=== PATIENT | female | born 1945 | race Caucasian/White ===

== ENCOUNTER 2019-02-05 17:27 | Observation (INO) ==
--- NOTE | 2019-02-05 18:08 | Emergency Department Note ---
Disposition Clinical Impression: Hyperkalemia, Renal insufficiency Disposition: Admitted As Inpatient Condition: Good Time of Disposition: 19:30 Recheck wound or abnormal lab - General Chief Complaint: ED Recheck/Abnormal Lab/Rx Stated Complaint: abnormal labs Time Seen by Provider: 02/05/19 18:07 Source: patient, other Mode of arrival: private vehicle Limitations: no limitations Nursing Notes Reviewed: Yes Vital Signs Reviewed: Yes - History of Present Illness HPI Narrative: Patient presents to the ED on referral from the lab any surgical center after having abnormal labs during preop testing. Chrystal from the surgical center called ahead to stated. Seen the patient today for preop testing in preparation for a left total knee replacement this test be performed on February 13. Patient was found to have an elevated potassium at 6.5 and a creatinine of 2.58. She is on oral potassium and Aldactone at home. Patient had no history of chronic kidney disease. They contacted her and told her to come to her nearest ER which is our facility. She states there was also some abnormal findings on her EKG and there physician wanted to arrange for the patient have an outpatient stress test before surgery. She has no cardiac history and denied any complaints. On arrival here patient denies any complaints other than her chronic left knee pain. She again denies any history of any kidney disease. She is not had any water to drink today, only a June". She speci fically denies any chest pain, shortness of breath, lower extremity edema, abdominal pain, nausea, vomiting, diarrhea, constipation or any urinary symptoms. She did have a TIA last February. She has a history of high blood pressure. She states she has been on potassium, 10 mEq twice a day for the past year. Prior to that she had been on doses as high as 60 mEq daily. She has been on Aldactone, 100 mg daily for over a year as well. She is also on lisinopril which is not new either. Review of records shows reverse recent lab work here was in March of last year at which time her BUN and creatinine were 23 and 1.35 respectively. Potassium was normal at 4.3. She states she has had problems with low potassium in the past but never high potassium. No other significant abnormalities on the lab work that was faxed here from the surgery center. EKG that was sent with the patient shows only some nonspecific ST changes. - Related Data Home Medications Medication Instructions Recorded Confirmed Atenolol [Tenormin] 12.5 mg PO BID 10/24/15 02/05/19 Bupropion HCl [Wellbutrin Xl] 300 mg PO DAILY 10/24/15 02/05/19 Clopidogrel Bisulfate [Plavix] 75 mg PO DAILY 10/24/15 02/05/19 Levothyroxine [Synthroid] 88 mcg PO QMWFSU 10/24/15 02/05/19 Lisinopril [Zestril] 20 mg PO BID 10/24/15 02/05/19 Potassium Chloride 10 meq PO BID 10/24/15 02/05/19 Levothyroxine [Synthroid] 75 mcg PO QTUTHSA 02/05/19 02/05/19 Rosuvastatin Calcium [Crestor] 20 mg PO DAILY 02/05/19 02/05/19 Spironolactone [Aldactone] 100 mg PO DAILY 02/05/19 02/05/19 clonazePAM [Clonazepam] 1 mg PO BID 02/05/19 02/05/19 Allergies Allergy/AdvReac Type Severity Reaction Status Date / Time No Known Allergies Allergy Verified 10/24/15 12:37 Constitutional: Denies: fever, chills, weakness, weight change Eyes: Denies: eye pain, eye discharge, vision change ENT ED: Denies: ear pain, throat pain, dental pain, hearing loss, epistaxis, congestion, dysphagia Cardiovascular: Denies: chest pain, palpitations, dyspnea on exertion, edema, syncope Respiratory: Denies: cough, dyspnea, wheezes, hemoptysis, stridor Gastrointestinal: Denies: abdominal pain, nausea, vomiting, diarrhea, cons tipation, hematemesis, melena, hematochezia Genitourinary: Denies: dysuria, frequency, hematuria, discharge Musculoskeletal: Denies: back pain, neck pain, arthralgia, myalgia Integumentary: Denies: rash, abrasion, lesions Neurological: Denies: headache, weakness, numbness, paresthesias, confusion, a bnormal gait, vertigo Psychiatric: Denies: anxiety, depression, suicidal thoughts, homicidal thoughts, auditory hallucinations, visual hallucinations Endocrine: Denies: fatigue Hematological/Lymphatic: Denies: easy bleeding, easy bruising Allergic/Immunologic: Denies: facial swelling, urticaria Past Medical History - Past Medical History Medical history: Reports: hyperlipidemia, hypertension, thyroid disease, TIA Psychiatric history: Reports: depression - Social History Smoking Status: Never smoker Smokeless Tobacco Status: No Alcohol use: Reports: none Drug use: Reports: none Physical Exam - General Limitations: no limitations General appearance: alert, in no apparent distress - Head Head exam: atraumatic, normocephalic, normal inspection - Eye Eye exam: Present: normal appearance, PERRL, EOMI - ENT ENT exam: normal exam, normal oropharynx, mucous membranes moist - Neck Neck exam: Present: normal inspection, full ROM, trachea midline - Chest Chest inspection: Present: normal inspection, symmetric chest wall rise - Respiratory Respiratory exam: Present: normal lung sounds bilaterally - Cardiovascular Cardiovascular exam: Present: regular rate, normal rhythm, normal heart sounds - Abdominal Exam Abdominal exam: Present: soft, Non-Tender. Absent: tenderness, distention, gu arding, rebound, rigidity - Extremities Exam Extremities exam: Present: normal inspection, full ROM. Absent: tenderness, pedal edema - Back Exam Back exam: Present: normal inspection, full ROM. Absent: tenderness - Neurological Exam Neurological exam: Present: alert, oriented X3 - Psychiatric Psychiatric exam: Present: normal affect, normal mood - Skin Skin exam: Present: warm, dry, intact, normal color Course Course Narrative: Patient presents to the ED for evaluation after being found to have elevated potassium and creatinine on preoperative testing. On arrival here she is afebrile, hemodynamically stable and nontoxic in appearance she has no current physical complaints. EKG was repeated on arrival and shows a sinus rhythm with no ischemic changes and no T-wave abnormalities. Will repeat lab work to confirm before initiating any treatment. - Reevaluation(s) Reevaluation #1: Potassium was elevated again at 6.1. Creatinine is elevated at 2.78. Will treat the hyperkalemia and start IV hydration for the renal insufficiency. It is unclear whether this is an acute kidney injury or possibly progressive CKD that is undiagnosed. Discussed with patient the need for admission for medication, IV fluids and repeat lab work. She is in agreement. I spoke to the hospitalist on-call, Dr. Viveros who agreed to accept the patient. Vital Signs Temperature 97.8 F 02/05/19 17:30 Pulse Rate 62 02/05/19 17:30 Respiratory Rate 18 02/05/19 17:30 Blood Pressure 177/63 02/05/19 17:30 O2 Sat by Pulse Oximetry 97 02/05/19 17:30 Temperature 98.2 F 02/05/19 21:15 Pulse Rate 64 02/05/19 21:15 Respiratory Rate 18 02/05/19 20:45 Blood Pressure 138/66 02/05/19 21:15 O2 Sat by Pulse Oximetry 97 02/05/19 21:15 Oxygen Delivery Oxygen Delivery Room Air Recheck wound or abnormal lab - Medical Records Medical records reviewed: Yes I reviewed the patient's medical records. - Lab Data Lab results reviewed: Yes I reviewed the patient's lab results. Result diagrams: 02/05/19 18:26 02/05/19 18:26 Lab Results 02/05/19 02/05/19 Range/Units 18:26 18:26 WBC 12.9 H (4.3-11.1) K/mcL RBC 4.25 (3.82-4.97) M/mcL Hgb 13.0 (11.5-15.4) g/dL Hct 40.5 (35.3-44.9) % MCV 95.3 (83.0-100.0) fL MCH 30.6 (28.0-33.3) pg MCHC 32.1 (31.6-35.5) g/dL RDW 12.7 (11.5-14.5) % Plt Count 243 (140-400) K/mcL MPV 10.4 (9.4-12.4) fL Immature Gran % 0.6 (0-4) % Seg Neutrophils % 84.4 % Lymphocytes % 10.4 % Monocytes % 4.3 % Eosinophils % 0.0 % Basophils % 0.3 % Neutrophils # 10.9 H (1.6-8.9) K/mcL Lymphocytes # 1.3 (0.6-4.6) K/mcL Monocytes # 0.6 (0.0-1.3) K/mcL Eosinophils # 0.0 (0.0-0.6) K/mcL Basophils # 0.0 (0.0-0.2) K/mcL Sodium 134 L (136-145) mEq/L Potassium 6.1 H (3.5-5.1) mEq/L Chloride 105 (98-107) mEq/L Carbon Dioxide 22 L (23-29) mEq/L BUN 53 H (8-23) mg/dL Creatinine 2.78 H (0.60-1.20) mg/dL Est GFR ( Amer) 20 L (> 60) Est GFR (Non-Af Amer) 17 L (> 60) BUN/Creatinine Ratio 19 (6-26) Glucose 128 H (70-105) mg/dL Calculated Osmolality 294 (280-300) Calcium 10.3 (8.6-10.3) mg/dL - EKG Data EKG attestation: Yes I reviewed and interpreted this EKG. EKG shows normal: sinus rhythm Rate: normal Rhythm: NSR [place]/QRS: normal Interpretation: no acute changes, unchanged when compared to prior tracing (date ) (outpatient EKG from earlier today), nonspecific ST-T wave changes
[2019-02-05 18:37] LABS: Basophils % 0.3 %; Hematocrit 40.5 % (35.3-44.9); Immature Granulocytes % 0.6 % (0-4); Lymphocytes # 1.3 K/mcL (0.6-4.6); Lymphocytes % 10.4 %; Mean Corpuscular HGB Conc 32.1 g/dL (31.6-35.5); Mean Corpuscular Hemoglobin 30.6 pg (28.0-33.3); Mean Corpuscular Volume 95.3 fL (83.0-100.0); Mean Platelet Volume 10.4 fL (9.4-12.4); Monocytes # 0.6 K/mcL (0.0-1.3); Monocytes % 4.3 %; Neutrophils # 10.9 K/mcL (1.6-8.9); Platelet Count 243 K/mcL (140-400); Red Blood Count 4.25 M/mcL (3.82-4.97); Red Cell Distribution Width 12.7 % (11.5-14.5); Segmented Neutrophils % 84.4 %; White Blood Count 12.9 K/mcL (4.3-11.1)
[2019-02-05 18:56] LABS: Calcium 10.3 mg/dL (8.6-10.3); Potassium 6.1 mEq/L (3.5-5.1)
[2019-02-05] MEDS ORDERED: Insulin Human Regular 10 UNIT in 0.9 % Sodium Chloride 10 ML IV ONE (19:08)
[2019-02-05] MEDS ORDERED: *HR* Dextrose 50 % in Water (Syg) 50 ML SYRINGE IVP ONE (19:08)
[2019-02-05] MEDS ORDERED: Calcium Gluconate 1gm/50mL 1 GM/50 ML BAG IVPB ONE (19:08)
[2019-02-05] MEDS ORDERED: Sodium Bicarbonate 50 MEQ/50 ML VIAL IVP ONE (19:08)
[2019-02-05] MEDS ORDERED: Naloxone 0.4 MG/ML INJ IVP PRN (19:33)
[2019-02-05] MEDS: 0.9 % Sodium Chloride 1,000 ML IVC SCH (19:50)
[2019-02-05] MEDS: clonazePAM 0.5 MG TABLET PO SCH (21:49)
[2019-02-06] MEDS: 0.9 % Sodium Chloride 1,000 ML IVC SCH (04:32)
[2019-02-06 06:44] VITALS: BP 111/58
[2019-02-06 07:15] LABS: Calcium 9.2 mg/dL (8.6-10.3); Potassium 4.9 mEq/L (3.5-5.1)
[2019-02-06] MEDS: clonazePAM 0.5 MG TABLET PO SCH (08:35)
[2019-02-06] MEDS ORDERED: BuPROPion XL (24 HR) 150 MG TABLET PO SCH (09:00)
--- NOTE | 2019-02-06 11:40 | Internal Med History&Physical ---
Date of Encounter: 02/06/19 Time of Encounter: 11:00 Assessment and Plan (1) Hyperkalemia Current visit: Yes Status: Acute Likely secondary to use of Aldactone, KCl, and lisinopril. Potassium has normalized now to 4.9 with treatment in ER and IV fluids. (2) Acute renal failure Current visit: Yes Status: Acute Likely secondary to Aldactone and lisinopril use. BUN and creatinine have decreased to 47 and 2.25 on follow-up labs today. She is asymptomatic and wishes to be discharged home Qualifiers: Acute renal failure type: unspecified Qualified Code(s): N17.9 - Acute kidney failure, unspecified (3) Hypertension Current visit: Yes Status: Chronic Continue atenolol. Restart lisinopril since potassium is normalized. Remain off Aldactone/potassium chloride. Qualifiers: Hypertension type: essential hypertension Qualified Code(s): I10 - Essential (primary) hypertension (4) Hypothyroidism Current visit: Yes Status: Chronic TSH normal at 4.178 on 04/24/2018. Continue present dose Synthroid Qualifiers: Hypothyroidism type: unspecified Qualified Code(s): E03.9 - Hypothyroidism, unspecified Internal Medicine - H&P: HPI Chief complaint: Hyperkalemia, azotemia Admitted From: Emergency Dept Plans for Post Hospital Care: Home History of present illness: Ms. Caldwell is a 73 year old female who was directed to emergency room from staff at Dr. Wong's office in [place] following preoperative labs drawn earlier in the day which show significant abnormality. She came to [facility] ER and was found to have hyperkalemia and acute renal failure. There was also mild leukocytosis with left shift present. She was treated for hyperkalemia in em ergency room and was admitted to [facility] floor for ongoing care needs. She states she was asymptomatic. She denies knowledge of past renal disease however review of archived labs show azotemia progressively developing since 03/26/2018 labs. She reports she was placed on Aldactone approximately one year ago for hypertension. She also uses lisinopril and Tenormin. She takes potassium supplement for history of hypokalemia. She denies CO heart failure angina DVT or pulmonary embolus. She denies other kidney or bladder disorders. She states she feels back to her baseline and wishes to be discharged home. Past Med Surg Social Fam HX - Past Medical History Medical history: hyperlipidemia, hypertension, thyroid disease, TIA Psychiatric history: depression - Past Surgical History Surgical History: knee replacement Additional surgical history: right knee - Social History Smoking Status: Never smoker Smokeless Tobacco Status: No Alcohol use: none Drug use: none Internal Medicine - H&P: Meds Atenolol [Tenormin] 12.5 mg PO BID 10/24/15 [History] Bupropion HCl [Wellbutrin Xl] 300 mg PO DAILY 10/24/15 [History] Clopidogrel Bisulfate [Plavix] 75 mg PO DAILY 10/24/15 [History] Levothyroxine [Synthroid] 88 mcg PO QMWFSU 10/24/15 [History] Lisinopril [Zestril] 20 mg PO BID 10/24/15 [History] Potassium Chloride 10 meq PO BID 10/24/15 [History] Levothyroxine [Synthroid] 75 mcg PO QTUTHSA 02/05/19 [History] Rosuvastatin Calcium [Crestor] 20 mg PO DAILY 02/05/19 [History] Spironolactone [Aldactone] 100 mg PO DAILY 02/05/19 [History] clonazePAM [Clonazepam] 1 mg PO BID 02/05/19 [History] Allergy/AdvReac Type Severity Reaction Status Date / Time No Known Allergies Allergy Verified 10/24/15 12:37 All Systems PM: A 10-system review of systems was performed and is negative for pertinent findings except as documented above in the HPI. Review of systems: Gen.: She states her weight has increased approximately 10 pounds in the past 6 months Cardiovascular: As per history of present illness Respiratory: She is a lifelong nonsmoker and denies chronic lung disease GI: She denies disorders of her liver gallbladder or exocrine pancreas : As per history of present illness Neurologic: She had a TIA February 2018 without recurrence. She is on Plavix. She denies large distribution strokes or seizures. Endocrine: She has hypothyroidism. She denies diabetes or hyperlipidemia. Hematology/oncology: She denies blood disorders cancers or anemia Psychiatric: She has depression but denies anxiety or other mental health issues [place] skeletal: She has DJD and diffuse myalgias/arthralgias of uncertain etiology. - Constitutional Vitals: Temp Pulse Resp BP Pulse Ox 97.6 F 59 18 111/58 99 02/06/19 06:40 02/06/19 06:40 02/06/19 06:40 02/06/19 06:40 02/06/19 06:40 Exam: Gen.: She is a well-developed well-nourished female who appears in no acute distress HEENT: Head is atraumatic and normocephalic. Eyes: EOMI. There is no scleral icterus. Mouth: Mucosa is moist. Neck: Supple and nontender. There is no thyromegaly or adenopathy noted. Heart: Regular without murmurs gallops or ectopics Lungs: No wheezes or crackles are heard. Abdomen: Soft and nontender. No masses or guarding are noted. Extremities: There is no cyanosis edema or clubbing noted. Dorsalis pedis and posterior tibial pulses are 1-2/2 bilaterally. Neurologic: Mental status: She is talkative and a good historian. Cranial nerves: Smile is symmetric. Forehead wrinkles bilaterally. Tongue protrudes midline. EOMI. Motor: There is no pronator drift. Cerebellar: Finger to nose is intact bilaterally. Skin: Warm and dry Internal Med - H&P Results - Labs CBC & Chem 7: 02/05/19 18:26 02/06/19 06:38 Labs: Short CBC 02/05/19 Range/Units 18:26 WBC 12.9 H (4.3-11.1) K/mcL Hgb 13.0 (11.5-15.4) g/dL Hct 40.5 (35.3-44.9) % Plt Count 243 (140-400) K/mcL Neutrophils # 10.9 H (1.6-8.9) K/mcL BMP 02/05/19 02/06/19 18:26 06:38 Sodium 134 L 137 Potassium 6.1 H 4.9 Chloride 105 109 H Carbon Dioxide 22 L 22 L BUN 53 H 47 H Creatinine 2.78 H 2.25 H Glucose 128 H 101 Calcium 10.3 9.2 - VTE Reasons for not Prescribing Prophylaxis: Treatment not Indicated - Low risk for VTE
--- NOTE | 2019-02-06 11:56 | Discharge Summary ---
Date of Encounter: 02/06/19 Time of Encounter: 11:00 - Discharge Diagnosis (1) Hyperkalemia Priority: Primary Status: Resolved (2) Acute renal failure Priority: Secondary Status: Acute Qualifiers: Acute renal failure type: unspecified Qualified Code(s): N17.9 - Acute kidney failure, unspecified (3) Hypertension Priority: Secondary Status: Chronic Qualifiers: Hypertension type: essential hypertension Qualified Code(s): I10 - Essential (primary) hypertension (4) Hypothyroidism Priority: Secondary Status: Chronic Qualifiers: Hypothyroidism type: unspecified Qualified Code(s): E03.9 - Hypothyroidism, unspecified Hospital course: Ms. Caldwell is a 73 year old female who was directed to emergency room from staff at Dr. Wong's office in [place] following preoperative labs drawn earlier in the day which show significant abnormality. She came to [facility] ER and was found to have hyperkalemia and acute renal failure. There was also mild leukocytosis with left shift present. She was treated for hyperkalemia in emergency room and was admitted to [facility] for ongoing care needs. Initial orders were written by the emergency room physician. I saw her on February 06 and performed a history physical and discharge. She received treatment for hyperkalemia in emergency room and potassium had normalized to 4.9 on follow-up labs on February 06. She will remain off Aldactone and potassium chloride at discharge. Lisinopril be restarted but I explained it could cause hyperkalemia/azotemia also. Her PCP can monitor labs and determine if lisinopril should be reduced/discontinued. When I saw her she felt stable and wished to be discharged home. She will follow with her PCP Dr. Yan Conde within 1 week. - Time Spent with Patient Total time spent providing and/or coordinating discharge services: - Discharge Medications Prescriptions: Continued Bupropion HCl [Wellbutrin Xl] 300 mg PO DAILY Lisinopril [Zestril] 20 mg PO BID Levothyroxine [Synthroid] 88 mcg PO QMWFSU Atenolol [Tenormin] 12.5 mg PO BID Clopidogrel Bisulfate [Plavix] 75 mg PO DAILY Levothyroxine [Synthroid] 75 mcg PO QTUTHSA clonazePAM [Clonazepam] 1 mg PO BID Rosuvastatin Calcium [Crestor] 20 mg PO DAILY Discontinued Potassium Chloride 10 meq PO BID Spironolactone [Aldactone] 100 mg PO DAILY Home Medications: Atenolol [Tenormin] 12.5 mg PO BID 10/24/15 [History] Bupropion HCl [Wellbutrin Xl] 300 mg PO DAILY 10/24/15 [History] Clopidogrel Bisulfate [Plavix] 75 mg PO DAILY 10/24/15 [History] Levothyroxine [Synthroid] 88 mcg PO QMWFSU 10/24/15 [History] Lisinopril [Zestril] 20 mg PO BID 10/24/15 [History] Levothyroxine [Synthroid] 75 mcg PO QTUTHSA 02/05/19 [History] Rosuvastatin Calcium [Crestor] 20 mg PO DAILY 02/05/19 [History] clonazePAM [Clonazepam] 1 mg PO BID 02/05/19 [History] Allergies/Adverse Reactions: Allergy/AdvReac Type Severity Reaction Status Date / Time No Known Allergies Allergy Verified 10/24/15 12:37 Date of admission: 02/05/19 20:50 Primary care physician: Yan Conde MD - Constitutional Vitals: Temp Pulse Resp BP Pulse Ox 97.6 F 59 18 111/58 99 02/06/19 06:40 02/06/19 06:40 02/06/19 06:40 02/06/19 06:40 02/06/19 06:40 - Patient Status Disposition: Home, Self-Care Condition: Good - Discharge Instructions Follow Up With: Yan Conde MD [Primary Care Provider] - 1 week - Diet and Activity Activity: resume usual activities as tolerated Diet: advance to your usual diet - VTE Reasons for not Prescribing Prophylaxis: Treatment not Indicated - Low risk for VTE
--- NOTE | 2019-02-06 17:43 | Electrocardiograph Report ---
[place] [id number] Test Date: 2019-02-05 Pat Name: Niecy Caldwell Department: EDP-16 Room: [facility] Gender: F Primary Teaching Assistant: : 1945 Requested By: Arlet Mejía Order Number: [id number] Reading MD: Gabrielle Layton Measurements Intervals [place] Rate: 56 P: 71 [place]: 186 QRS: 53 QRSD: 80 T: 82 QT: 390 QTc: 377 Interpretive Statements Sinus rhythm Low voltage, precordial leads Borderline T abnormalities, anterior leads Electronically Signed On 02-06-2019 17:42:23 EDT by Gabrielle Layton
== END 2019-02-06 12:40 | disposition home or self-care (01) ==
LOC: EMEROOPIK 17:27 → INPPIK 17:27
PROVIDERS: ADMIT Internal Medicine; ATTEND Internal Medicine